=== PATIENT | female | born 1950 | race Hispanic/Latino ===

== ENCOUNTER 2016-08-07 08:36 | Observation (INO) | payer OTHER ==
--- NOTE | 2016-08-01 11:56 | Anesthesia Consultation ---
Anesthesia Consult and Med Hx Date of service: 08/07/16 - Airway Anesthetic Teeth Evaluation: Good ROM Head & Neck: Adequate Mental/Hyoid Distance: Adequate Mallampati Class: Class II Intubation Access Assessment: Probably Good - Pulmonary Exam CTA: Yes - Cardiac Exam Cardiac Exam: RRR - Pre-Operative Health Status ASA Pre-Surgery Classification: ASA2 Proposed Anesthetic Plan: Epidural, Spinal - Pulmonary Hx Smoking: Yes (STOPPED X 16 YRS , 1/2PPD X 10 YRS) Hx Sleep Apnea: No (TANMAY PRE SCREEN HIGH RISK) - Cardiovascular System Hx Hypertension: Yes (X 6 YRS) - Other Systems Hx Alcohol Use: Yes (WINE QD) Hx Cancer: No
[~2016-08-07 08:36] MED LIST: ANCEF/STERILE WATER 2 GM/20 ML 20 ML IV NR; PEPCID PO NR; VERSED IV NR
--- NOTE | 2016-08-07 08:46 | Admit Criteria Form ---
Admission Criteria Documentation: AMBULATORY SURGERY EXCEPTION CRITERIA Ambulatory Surgery Exception Criteria ( Place 'X' for any and all applicable criteria): Surgery or procedure performed on ambulatory basis may require inpatient stay for[A] ANY ONE of the following(1)(2)(3)(4)(5)(6)(7)(8)(9): [X] I. A preoperative situation, condition, or finding that warrants inpatient stay as indicated by ANY ONE of the following: [X] a) Inpatient care needed because of severity of a disease or condition rather than the surgery (eg, severe cardiac or respiratory disease, severe infection) (15) (16 ) (17) (18) [] b) Emergent procedure (eg, angioplasty for acute ischemia)(19) [] c) Complex surgical approach or situation as indicated by ANY ONE of the following(3): [] i) Open approach needed instead of usual endoscopic, transcatheter, or other less invasive procedure [] ii) Difficult approach because of previous operation [] iii) Airway monitoring required after open neck procedures(20)(21) [] iv) Large mass requiring unusually extensive dissection [] v) Additional complicating feature requiring inpatient care (eg, drain management)(22(23): [] d) Major surgery in a pt with high anesthetic risk as indicated by ANY ONE of the following (2)(3)(5)(7)(8): [] i) ASA risk class III or higher (severe systemic disease impairing function) [D] [] ii) Advanced age (eg, older than 85 years)(14)(24) [] iii) Symptomatic heart failure(25) [] iv) Symptomatic asthma or COPD(8)(21) [] v) Morbid obesity with hemodynamic or respiratory problems(20)( 21)(26)(27) [] vi) Obstructive sleep apnea(20)(21) [] vii) Former premature infants who are younger than 60 weeks [] viii) High risk for severe postoperative abnormalities (eg, severe postoperative hypocalcemia after parathyroidectomy for severe hyperparathyroidism)(27)( 28) [] ix) Unstable angina(25) [] e) Drug-related risk requiring inpatient stay as indicated by ANY ONE of the following(5)(10)(14)(32)(33) [] i) Procedure requires discontinuing drugs or other therapy (eg , antiarrhythmic medication, antiseizure medication), which necessitates inpatient observation or treatment.(18)(31) [] ii) Major surgery and high risk drug use as indicated by ANY ONE of the following: [] 1) Active abuse of cocaine or similar drug [] 2) Monoamine oxidase inhibitor use [] 3) Other drug identified as posing risk [] f) Inadequate outpatient care situation as indicated by ANY ONE of the following(5)(10)(14)(32)(33) [] i) Patient lives remote from medical facility and procedure has urgent complication potential, and temporary nearby residence cannot be arranged [] ii) Patient will have postprocedure incapacitation and inadequate assistance at home, or alternative level of care cannot be arranged. [] iii) Patient will have long general anesthesia or procedure side effect resolution time, and competent person to stay with patient on first postoperative night at home or alternative level of care cannot be arranged. []iv) Other inadequate outpatient situation that cannot be handled by other means [] II. A perioperative event, condition, or finding that warrants inpatient stay as indicated by ANY ONE of the following (1)(2)(3): [] a) Inadequate physiologic recovery: cardiovascular, respiratory, or hemodynamic status not normal or near preoperative baseline(18) [] b) Hemodynamic instability [] c) Patient not alert with near normal or baseline mental status [] d) Temperature not normal or as expected and not appropriate for outpatient treatment of condition [] e) Ambulatory or appropriate activity level status not yet achieved post procedure [E](34)(35)(36) [] f) Operative site not appropriate (eg, unexpected or excessive drainage or bleeding) [] g) Postoperative effects not resolved or adequately managed (eg, significant pain or vomiting not appropriate for outpatient or next level of care)(10)(12) [] h) Complicating features requiring inpatient care as indicated by ANY ONE of the following(37): [] i) Severe complications of procedure (eg, bowel injury, airway compromise, vascular injury,severe hemorrhage) [] ii) Extensive (eg, dissection far beyond usual scope of procedure ) or prolonged (eg, 120 minutes beyond usual) surgery needed requiring inpatient postoperative care [] iii) Conversion to an open or complex procedure that requires inpatient care (eg, open vs laparoscopic cholecystectomy, abdominal vs vaginal hysterectomy)(38) [] iv) Comorbid condition or test result identified during or post procedure that requires inpatient care (7) [] v) Malignant hyperthermia(30) [] vi) Other complicating feature requiring inpatient care(22)(23) Inpatient stay may be needed until ALL of the following are present (1)(2)(3)(4) (5)(6)(10)(14)(33)(40): []a) Physiologic recovery: cardiovascular, respiratory, and hemodynamic status normal or near preoperative baseline []b) Hemodynamic stability []c) Patient alert, with near normal or baseline mental status []d) Temperature appropriate: patient afebrile or temperature appropriate for outpt treatment of condition []e) Activity level appropriate: ambulatory or appropriate activity level post procedure []f) Operative site appropriate as indicated by ALL of the following: []i) Site dry or with expected drainage []ii) Any blood noted is as expected for procedure. []g) Postoperative effects resolved or managed as indicated by ALL of the following: []i) Pain management appropriate for outpatient (or next level of) care(10) []ii) Minimal nausea and vomiting: if present, successfully treated with oral medication(12) []iii) Headache, dizziness, or drowsiness (if present) are mild. []h) Voiding status acceptable as indicated by ANY ONE of the following: []i) Voiding spontaneously []ii) No voiding but instructions given for follow-up in 6 to 8 hours []iii) Urinary catheter in place, and instructions given for follow-up []i) Complicating features requiring inpatient care manageable at a lower level of care(37) []j) Comorbid conditions manageable at a lower level of care(37) The original [employer] content created by [employer] has been revised. The portions of the content which have been revised are identified through the use of italic text or in bold, and [employer] has neither reviewed nor approved the modified material. All other unmodified content is copyright [employer]. Please see references footnoted in the original [employer] edition 2016 Admission Criteria Met: Yes
[2016-08-07] MEDS: LACTATED RINGERS 1,000 ML IV SCH ×3 (09:25→23:54)
[2016-08-07] MEDS ORDERED: PEPCID IV NR (10:22)
[2016-08-07] MEDS ORDERED: VERSED IV NR (10:22)
[2016-08-07] MEDS ORDERED: NEURONTIN PO NR (10:24)
[2016-08-07] MEDS ORDERED: DECADRON ONE (10:53)
[2016-08-07] MEDS ORDERED: MARCAINE-EPI 0.5%-1:200,000 INFILTRATI ONE ×3 (10:53→12:47)
[2016-08-07] MEDS ORDERED: DIPRIVAN 10 MG/ML IV ONE ×2 (12:00→13:27)
[2016-08-07] MEDS ORDERED: NACL 0.9% IR ONE ×2 (12:00)
[2016-08-07] MEDS ORDERED: NEOSPORIN GU IR ONE (12:00)
[2016-08-07] MEDS ORDERED: CLONIDINE 1,000 MCG/10 ML VIAL EP ONE (12:00)
[2016-08-07] MEDS ORDERED: NACL 0.9% IV ONE (12:10)
[2016-08-07] MEDS ORDERED: TRANEXAMIC ACID IV ONE (12:10)
[2016-08-07] MEDS ORDERED: NACL 0.9% 1000 ML 1,000 ML ONE ×2 (12:35→13:26)
[2016-08-07] MEDS ORDERED: XYLOCAINE MPF 2% ONE ×2 (12:35→13:54)
[2016-08-07] MEDS ORDERED: DILAUDID IV PRN ×2 (14:57→15:01)
[2016-08-07] MEDS ORDERED: SODIUM CHLORIDE FLUSH SYRINGE 10 ML IV PRN (15:01)
[2016-08-07] MEDS ORDERED: TORADOL IV PRN (15:01)
--- NOTE | 2016-08-07 16:01 | Post Anesthesia Evaluation ---
- Post Anesthesia Evaluation Patient Participated: Yes Airway Patent: Yes Stable Respiratory Function: Yes Nausea/Vomiting: No Temp > 96.8F: Yes Pain Manageable: Yes Adequeate Hydration: Yes Anesthesia Complications: No Block Receding Appropriately: Not Applicable Patient on Ventilator: No
--- NOTE | 2016-08-07 16:01 | Anesthesia Day of Surgery ---
Anesthesia Day of Surgery - Day of Surgery Patient Examined: Yes Patient H&P Reviewed: Yes Patient is NPO: Yes
[2016-08-07] MEDS: ANCEF/NS 1 GM/50 ML 50 ML IV SCH (17:35)
[2016-08-07] MEDS: PERCOCET 5/325 PO PRN (23:54)
--- NOTE | 2016-08-07 23:54 | Consultation ---
History of Present Illness - Reason for Consult Consult date: 08/07/16 Medical management Requesting physician: KAILYN TAI - History of Present Illness S/p L TKA--- Doing well. Resting.Some pain Past History Past Medical History: hypertension Past Surgical History: total knee replacement Social history: lives with family Medications and Allergies Allergies Allergy/AdvReac Type Severity Reaction Status Date / Time celecoxib [From Celebrex] Allergy Vomiting Verified 07/30/16 16:47 Home Medications Medication Instructions Recorded Confirmed Last Taken Type Aspirin [Adult Low Dose Aspirin EC] 81 mg PO DAILY 07/30/16 08/07/16 07/31/16 09 :00 History Hydrochlorothiazide [Hctz] 12.5 mg PO QDAY 07/30/16 08/07/16 08/06/16 21:00 History Telmisartan/Hydrochlorothiazid 1 tab PO DAILY 07/30/16 08/07/16 08/06/16 21:00 History [Micardis Hct 40-12.5 mg] Active Meds: Active Medications Hydromorphone HCl (Dilaudid) 0.5 mg IV Q10MIN PRN PRN Reason: Pain , Severe (7-10) Stop: 08/07/16 23:58 Last Admin: 08/07/16 16:00 Dose: 0.5 mg Hydromorphone HCl (Dilaudid) 0.5 mg IV Q3H PRN PRN Reason: Pain , Severe (7-10) Lactated Ringer's (Lactated Ringers) 1,000 mls @ 100 mls/hr IV DIRECT RORY Last Admin: 08/07/16 17:35 Dose: 100 mls/hr Cefazolin Sodium (Ancef/Sterile Water 2 Gm/20 Ml) 20 mls @ 80 mls/hr IV PREOP NR PRN Reason: Protocol Stop: 08/07/16 23:59 Cefazolin Sodium (Ancef/Ns 1 Gm/50 Ml) 50 mls @ 100 mls/hr IV Q8H RORY Stop: 08/08/16 01:29 Last Admin: 08/07/16 17:35 Dose: 100 mls/hr Ketorolac Tromethamine (Toradol) 15 mg IV Q6H PRN PRN Reason: Pain, Mild (1-3) Stop: 08/12/16 15:00 Last Admin: 08/07/16 16:00 Dose: 15 mg Losartan Potassium (Cozaar) 100 mg PO QDAY RORY Midazolam HCl (Versed) 2 mg IV PREOP NR Stop: 08/07/16 23:59 Last Admin: 08/07/16 11:00 Dose: 2 mg Oxycodone/Acetaminophen (Percocet 5/325) 2 tab PO Q6H PRN PRN Reason: Pain, Moderate (4-6) Sodium Chloride (Sodium Chloride Flush Syringe 10 Ml) 10 ml IV PRN PRN PRN Reason: LINE FLUSH Review of Systems All systems: negative Exam - Constitutional Vitals: Temp Pulse Resp BP Pulse Ox 97.4 F L 66 20 109/68 97 08/07/16 22:28 08/07/16 22:28 08/07/16 22:28 08/07/16 22:28 08/07/16 22:28 General appearance: Present: no acute distress, well-nourished - EENT Eyes: Present: PERRL ENT: hearing intact, clear oral mucosa - Neck Neck: Present: supple, normal ROM - Respiratory Respiratory effort: normal Respiratory: bilateral: CTA - Cardiovascular Heart Sounds: Present: S1 & S2. Absent: rub, click - Extremities Extremities: pulses symmetrical, No edema Peripheral Pulses: within normal limits - Abdominal General gastrointestinal: Present: soft, non-tender, non-distended, normal bowel sounds Female genitourinary: Present: normal - Integumentary Integumentary: Present: clear, warm, dry - Musculoskeletal Musculoskeletal: gait normal, strength equal bilaterally - Psychiatric Psychiatric: appropriate mood/affect, intact judgment & insight - Neurologic Neurologic: CNII-XII intact, moves all extremities Assessment and Plan - Patient Problems (1) HTN (hypertension) Current Visit: Yes Status: Chronic Qualifiers: Hypertension type: essential hypertension Qualified Code(s): I10 - Essential (primary) hypertension Plan to address problem: Cont Telmisartan or equivalent (2) History of total knee arthroplasty Current Visit: Yes Status: Acute Qualifiers: Laterality: left Qualified Code(s): Z96.652 - Presence of left artificial knee joint (3) DVT prophylaxis Current Visit: Yes Status: Acute Plan to address problem: Cont ASA 325 mg po bid (4) Pain management Current Visit: Yes Status: Acute Plan to address problem: Cont analgesics
--- NOTE | 2016-08-07 23:57 | Operative Report ---
PREOPERATIVE DIAGNOSES: 1. 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 2. Obesity. POSTOPERATIVE DIAGNOSES: 1. 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 2. Obesity. 3. Markedly sclerotic bone. PROCEDURE PERFORMED: Left knee with unicompartmental arthroplasty utilizing [employer] [place] System -- increased difficulty, obesity, and sclerotic bone - size small cemented femur, small and size A cemented tibia, 3 mm polyethylene insert. SURGEON: Brandon White M.D. BUSINESS [employer] SALES ASSISTANT: Tl Johnson CSA. ANESTHESIA: Spinal epidural with adductor block. ESTIMATED BLOOD LOSS: Minimal. COMPLICATIONS: None. DESCRIPTION OF PROCEDURE: The patient underwent successful induction of anesthesia. This carefully positioned in the leg [place], prepped and draped in usual fashion. Antibiotics pre-administered. The lower extremity was exsanguinated and tourniquet inflated. A parapatellar incision was made extending from the superior pole of the patella to the tibial tubercle. Sharp dissection was carried out through skin and subcutaneous tissue. She was obese and increased the difficulty of the procedure. The joint was then appropriately exposed. Lateral compartment was well preserved as was the ACL. Medial compartment demonstrated ankylosis with marked sclerosis. She was felt to be an appropriate candidate for unicompartmental arthroplasty. At this point in time, attention was turned to the proximal tibia with osteophytes resected and utilizing the appropriate guide, the standard cuts made with an extramedullary system on the tibial side. After this had been performed, intramedullary leslye placed in the femur and with appropriate alignment the coupling guide was placed for resection of the posterior femur. At this point in time, utilizing Spigot reamers the gaps were appropriately balanced. This was quite difficult given the marked sclerosis of the bone. However, the gaps were equally balanced. She was felt to be appropriate for size 4 or 3. The wounds were thoroughly irrigated. Menisci resected all osteophytes removed. At this point in time, the keel prepared and the tibia was cemented in place. Drill holes were placed in the femur and the femur cemented as well. She had full range of motion, excellent stability, flexion and extension with an excellent fit with a size 3 mm implant was placed. Excellent tracking was achieved. The wounds were once again irrigated. The arthrotomy reapproximated with Ethibond and 0 Vicryl followed by 0 Vicryl, 2-0 Vicryl, subcutaneous tissue, and Monocryl for the skin. Tourniquet released prior to wound closure. No significant bleeding encountered. Sterile dressings were applied. She was taken to the recovery room in satisfactory condition having tolerated the procedure well. JOB# [id number] [place]/NTS
[2016-08-08] MEDS: ANCEF/NS 1 GM/50 ML 50 ML IV SCH (03:29)
[2016-08-08] MEDS: PERCOCET 5/325 PO PRN ×2 (08:29→13:51)
[2016-08-08] MEDS ORDERED: COZAAR PO SCH (10:00)
--- NOTE | 2016-08-08 13:41 | Progress Note ---
Subjective Date of service: 08/08/16 Interval history: 1st POD after left knee arthroplasty Patient is in the bed, relatively comfortable. Pain is well controlled with pain meds. Ambulated with some help, had physical therapy. No anesthesia complications Objective - Constitutional Vitals: Vital Signs - 12hr 08/08/16 08/08/16 08/08/16 05:34 08:00 08:29 Temperature 98.4 F 97.9 F Pulse Rate [ 56 L 57 L Brachial] Respiratory 20 18 20 Rate Blood Pressure 111/68 130/71 [Left Arm] O2 Sat by Pulse 100 97 Oximetry 08/08/16 12:13 Temperature 98.1 F Pulse Rate [ 70 Brachial] Respiratory 18 Rate Blood Pressure 134/68 [Left Arm] O2 Sat by Pulse Oximetry
[2016-08-08] MEDS: LACTATED RINGERS 1,000 ML IV SCH (13:52)
[2016-08-08 16:01] VITALS: BP 132/71
--- NOTE | 2016-08-08 16:26 | Progress Note ---
Subjective Date of service: 08/08/16 Interval history: VSS without c/o NVI Dssg dry stable Doing well..d/c Objective Vital signs: Vital Signs - 12hr 08/08/16 08/08/16 08/08/16 05:34 08:00 08:29 Temperature 98.4 F 97.9 F Pulse Rate [ 56 L 57 L Brachial] Respiratory 20 18 20 Rate Blood Pressure 111/68 130/71 [Left Arm] O2 Sat by Pulse 100 97 Oximetry 08/08/16 08/08/16 08/08/16 10:00 12:13 13:51 Temperature 98.1 F Pulse Rate [ 70 Brachial] Respiratory 18 16 Rate Blood Pressure 134/68 [Left Arm] O2 Sat by Pulse 97 Oximetry 08/08/16 16:00 Temperature 98.1 F Pulse Rate [ 66 Brachial] Respiratory 18 Rate Blood Pressure 132/71 [Left Arm] O2 Sat by Pulse Oximetry
--- NOTE | 2016-08-08 16:36 | Discharge Summary ---
Providers - Providers Date of Admission: 08/07/16 15:01 Date of discharge: 08/08/16 Attending physician: SUKUMAR TAI 08/07/16 15:01 Consult to Case Management [CONS] Routine Services Needed at Discharge: Home Health Services Notified:: RUBBER MOLDER Consult to Physician [CONS] Routine Consulting Provider: YOLY LUNOG Reason For Exam: primary care Place consult to:: DR. LUONG Notified:: DR. LUONG Was contact made?: Yes If yes, spoke with:: DR. LUONG Time called:: 17:10 Comment:: COMPLETED - ANDREA 08/07/16 15:05 Physical Therapy Evaluation and Treat [CONS] Routine Comment: Reason For Exam: uni knee Hospitalization Procedures: S/p L TKA -patient doing well Hospital course: S/p L TKA post op patient did well.No complications. Disposition: DC/[place] HOME UNDER HOME HEALTH - Discharge Diagnoses (1) HTN (hypertension) Status: Chronic Qualifiers: Hypertension type: essential hypertension Qualified Code(s): I10 - Essential (primary) hypertension (2) History of total knee arthroplasty Status: Acute Qualifiers: Laterality: left Qualified Code(s): Z96.652 - Presence of left artificial knee joint (3) DVT prophylaxis Status: Acute Comment: on ASA 325 mg po bid (4) Pain management Status: Acute Comment: Adequate Core Measure Documentation - Palliative Care Palliative Care/ Comfort Measures: Not Applicable - Core Measures Any of the following diagnoses?: none Exam - Constitutional Vitals: Temp Pulse Resp BP Pulse Ox 98.1 F 66 18 132/71 97 08/08/16 16:00 08/08/16 16:00 08/08/16 16:00 08/08/16 16:00 08/08/16 10:00 General appearance: Present: no acute distress, well-nourished - EENT Eyes: Present: PERRL ENT: hearing intact, clear oral mucosa - Neck Neck: Present: supple, normal ROM - Respiratory Respiratory effort: normal Respiratory: bilateral: CTA - Cardiovascular Heart Sounds: Present: S1 & S2. Absent: rub, click - Extremities Extremities: pulses symmetrical, No edema Peripheral Pulses: within normal limits - Abdominal General gastrointestinal: Present: soft, non-tender, non-distended, normal bowel sounds Female genitourinary: Present: normal - Integumentary Integumentary: Present: clear, warm, dry - Musculoskeletal Musculoskeletal: gait normal, strength equal bilaterally - Psychiatric Psychiatric: appropriate mood/affect, intact judgment & insight - Neurologic Neurologic: CNII-XII intact, moves all extremities Plan Weight Bearing Status: Weight Bear as Tolerated Diet: regular
== END 2016-08-08 18:00 | disposition home health service (06) ==
LOC: OR 08:36 → 2B-SURG 15:01
PROVIDERS: ADMIT Orthopaedic Surgery; ATTEND Orthopaedic Surgery
DX: M17.12 Unilateral primary osteoarthritis, left knee (principal); M24.662 Ankylosis, left knee; E66.9 Obesity, unspecified; Z96.652 Presence of left artificial knee joint
CPT/HCPCS: 27446; 62326; 64450; 88304; 88311; 94760; 96365; 96375; 97110; 97116; 97161; 97530; A4217; C1776; G0378; J0690; J0735; J1100; J1170; J1885; J2250; J2704; J7030; J7120; 88305